=== PATIENT | female | born 1970 | race African-American/Black ===

== ENCOUNTER 2018-12-04 11:25 | Outpatient (CLI) | payer BC ==
--- NOTE | 2018-12-04 13:31 | RAD ---
RIGHT TIBIA AND FIBULA: Date: 12/04/18 HISTORY: Injury to right lower extremity. FINDINGS: There are degenerative changes at the ankle and at the knee. No evidence of acute fracture. IMPRESSION: No acute fracture. POS: [facility]
== END 2018-12-04 11:26 | disposition home or self-care (01) ==
LOC: BICRAD 11:25
PROVIDERS: ATTEND Family Medicine
DX: M79.604 Pain in right leg (principal)

== ENCOUNTER 2021-10-26 08:57 | Emergency (ER) | payer BC ==
[2021-10-26] MEDS ORDERED: Iopamidol 370 76% 100 ML VIAL ONE (09:31)
[2021-10-26] MEDS ORDERED: Morphine 4 MG/ML VIAL ONE (09:32)
[2021-10-26] MEDS ORDERED: Ondansetron PF 4 MG/2 ML Vial ONE (09:32)
[2021-10-26 09:38] LABS: #Basophils 0.1 thou/uL (0.0-0.2); #Eosinphils 0.1 thou/uL (0.0-0.7); #Lymphocytes 1.8 thou/uL (1.20-3.40); #Neutrophils 3.8 thou/uL (1.40-6.50); %Basophils 0.9 % (0.0-1.0); %Eosinophils 2.2 % (0.0-10.0); %Lymphocytes 26.9 % (21.0-51.0); %Monocytes 14.1 % (0.0-10.0); %Neutrophils 55.9 % (42.0-75.0); Hemoglobin 13.5 g/dL (12.0-16.0); Mean Corpuscular HGB CONC 31.9 g/dL (32.0-36.0); Mean Corpuscular Hemoglobin 36.2 pg (27.0-31.0); Mean Platelet Volume 6.9 fL (7.4-10.4); Platelet Count 330 thou/uL (130-400); RBC Distribution Width 13.9 % (11.5-14.5); Red Blood Cell (RBC) Count 3.74 mill/uL (4.20-5.40); White Blood Cell (WBC) Count 6.7 thou/uL (4.8-10.8)
[2021-10-26 10:26] LABS: ALT (SGPT) 13 U/L (8-55); AST (SGOT) 18 U/L (5-34); Albumin 4.1 g/dL (3.5-5.0); Alkaline Phosphatase 69 U/L (40-110); Anion Gap 21 mmol/L (10-20); BUN (Urea Nitrogen) 12 mg/dL (9.8-20.1); Bilirubin, Total 0.3 mg/dL (0.2-1.2); Calc. Creatinine Clearance 0 mL/min (70-130); Calcium 9.6 mg/dL (7.8-10.44); Chloride 103 mmol/L (98-107); Globulin 3.4 g/dL (2.4-3.5); Glucose 133 mg/dL (70-105); Lipase 11 U/L (8-78); Magnesium 1.9 mg/dL (1.6-2.6); Protein, Total 7.5 g/dL (6.0-8.3); Sodium 134 mmol/L (136-145)
[2021-10-26 10:48] LABS: MDiff Complete? YES; Macrocytosis SLIGHT = 6-15 cells (100X) (0-5/hpf); Platelet Morphology Comment Appears Adequate; Polychromasia SLIGHT = 2-3 cells (100X) (0-2/hpf)
[2021-10-26 12:08] LABS: Bacteria/HPF None Seen HPF (None Seen); Bilirubin Negative (Negative); Blood, Urine Negative (Negative); Clarity Clear (Clear); Glucose, Urine (Dipstick) Normal (Negative); Ketone, Urine Negative (Negative); Leukocyte 75 Leu/uL (Negative); Nitrite Negative (Negative); Protein, Urine (Dipstick) Negative (Neg-Trace); RBC/HPF 0-3 HPF (0-3); Squamous Epithelial 0-3 HPF (0-3); Urobilinogen Normal mg/dL (Less than 2); WBC/HPF 0-3 HPF (0-3)
[2021-10-26 12:10] LABS: Specific Gravity, Urine 1.044 (1.002-1.036)
[2021-10-26 13:22] LABS: Carbon Dioxide 15 mmol/L (22-29)
== END 2021-10-26 12:08 | disposition home or self-care (01) ==
LOC: ERS 08:57
DX: K82.8 Other specified diseases of gallbladder (principal); I10 Essential (primary) hypertension; Z79.899 Other long term (current) drug therapy
CPT/HCPCS: 36415; 71045; 74177; 76705; 80053; 81003; 81015; 83690; 83735; 84484; 85025; 93005; 96374; 96375; J2270; J2405; Q9967

== ENCOUNTER 2021-11-19 07:16 | Outpatient (CLI) | payer BC | END 2021-11-19 07:17 | disposition home or self-care (01) | LOC: NM 07:16 | PROVIDERS: ATTEND Internal Medicine | DX: R10.13 Epigastric pain (principal); K59.00 Constipation, unspecified | CPT/HCPCS: 78227; A9537 ==

== ENCOUNTER 2021-12-17 13:01 | Outpatient (CLI) | payer BC ==
[2021-12-17 14:15] LABS: #Eosinphils 0.1 10x3/uL (0.0-0.5); #Monocytes 0.6 10x3/uL (0.0-1.1); %Eosinophils 2.7 % (0.0-6.0); %Lymphocytes 42.7 % (18.0-47.0); %Monocytes 13.7 % (0.0-10.0); Hemoglobin 13.1 g/dL (12.0-15.5); Mean Corpuscular HGB CONC 33.3 g/dL (32.0-36.0); Mean Corpuscular Hemoglobin 34.5 pg (27.0-33.0); Mean Corpuscular Volume 103.4 fl (81.6-98.3); Mean Platelet Volume 9.7 fl (7.4-10.4); Platelet Count 287 10x3/uL (150-450); RBC Distribution Width 13.9 % (11.5-14.5); White Blood Cell (WBC) Count 4.2 10x3/uL (3.5-10.5)
[2021-12-17 14:17] LABS: #Neutrophils 1.7 10x3/uL (1.5-8.4); %Neutrophils 39.9 % (40.0-75.0)
[2021-12-17 14:39] LABS: ALT (SGPT) 9 U/L (8-55); AST (SGOT) 15 U/L (5-34); Albumin 4.3 g/dL (3.5-5.0); Alkaline Phosphatase 64 U/L (40-110); Anion Gap 14 mmol/L (10-20); BUN (Urea Nitrogen) 14 mg/dL (9.8-20.1); Bilirubin, Total 0.4 mg/dL (0.2-1.2); Calc. Creatinine Clearance 0 mL/min (70-130); Calcium 9.5 mg/dL (7.8-10.44); Carbon Dioxide 25 mmol/L (22-29); Chloride 104 mmol/L (98-107); Globulin 3.1 g/dL (2.4-3.5); Glucose 86 mg/dL (70-105); Protein, Total 7.4 g/dL (6.0-8.3); Sodium 139 mmol/L (136-145)
== END 2021-12-17 13:02 | disposition home or self-care (01) ==
LOC: LABBT 13:01
PROVIDERS: ATTEND Specialist
DX: Z01.818 Encounter for other preprocedural examination (principal); K80.20 Calculus of gallbladder without cholecystitis without obstruction
CPT/HCPCS: 80053; 85025; 93005; 93010

== ENCOUNTER 2021-12-22 10:51 | Day surgery (SDC) | payer BC ==
[2021-12-17 10:50] VITALS: BMI 37.0
[2021-12-22] MEDS ORDERED: Ketorolac Tromethamine 30 MG/ML VIAL ONE (12:15)
[2021-12-22] MEDS ORDERED: Acetaminophen 500 MG TAB ONE (12:15)
[2021-12-22] MEDS ORDERED: HYDROmorphone 0.5 MG/0.5 ML SYRINGE ONE (15:47)
[2021-12-22] MEDS ORDERED: Midazolam HCl 2 mg/2 ml Vial ONE (15:47)
[2021-12-22] MEDS ORDERED: Fentanyl 100 MCG/2 ML VIAL ONE ×2 (15:47→18:04)
[2021-12-22] MEDS ORDERED: Lidocaine 2% Jelly 5 ML TUBE ONE (15:47)
[2021-12-22] MEDS ORDERED: Bupivacaine 0.25% HCL 30 ML VIAL ONE (15:49)
[2021-12-22] MEDS ORDERED: Lidocaine 1% w/Epinephrine 1:100K 20 ML VIAL ONE (15:49)
[2021-12-22] MEDS ORDERED: ceFAZolin (BATCH) 2 GM/100 ML BAG ONE (16:00)
[2021-12-22] MEDS ORDERED: PROPOFOL 200 MG/20 ML VIAL ONE (16:06)
[2021-12-22] MEDS ORDERED: Lidocaine 1% PF 5 ML VIAL ONE (16:06)
[2021-12-22] MEDS ORDERED: Glycopyrrolate 0.2 MG/ML 5 ML SYRINGE ONE (16:06)
[2021-12-22] MEDS ORDERED: ePHEDrine 50 MG/ML VIAL ONE (16:06)
[2021-12-22] MEDS ORDERED: Dexamethasone 20 MG/5 ML VIAL ONE (16:06)
[2021-12-22] MEDS ORDERED: Rocuronium Bromide 10 MG/ML (10ML VIAL) ONE (16:06)
[2021-12-22] MEDS ORDERED: Ondansetron PF 4 MG/2 ML Vial ONE (16:06)
== END 2021-12-22 17:15 | disposition home or self-care (01) ==
LOC: SDC 10:51
PROVIDERS: ATTEND Specialist
PROC: 0FT44ZZ Resection of Gallbladder, Percutaneous Endoscopic Approach (ICD-10-PCS; principal; 2021-12-22)
DX: K81.1 Chronic cholecystitis (principal); K82.8 Other specified diseases of gallbladder; K76.0 Fatty (change of) liver, not elsewhere classified; N73.6 Female pelvic peritoneal adhesions (postinfective); I10 Essential (primary) hypertension; E66.9 Obesity, unspecified; Z68.37 Body mass index [BMI] 37.0-37.9, adult; Z79.1 Long term (current) use of non-steroidal anti-inflammatories (NSAID); Z79.899 Other long term (current) drug therapy; Z98.84 Bariatric surgery status
CPT/HCPCS: 88304; C1713; J0690; J1100; J1170; J1885; J2250; J2405; J2704; J3010; J3490; S0020